=== PATIENT | female | born 1935 | race Hispanic/Latino ===

== ENCOUNTER 2020-10-12 14:00 | Observation (INO) | payer MEDICARE ==
[~2020-10-12] VITALS: Ht 154.9 cm; Wt 71.6 kg
[2020-10-12 14:50] VITALS: BP 100/60
[2020-10-12 15:16] LABS: BASOPHILS % (AUTO) 0.6 % (0.0-5.0); EOSINOPHILS % (AUTO) 2.3 % (0.0-8.0); HEMATOCRIT 23.2 % (36-48); LYMPHOCYTES % (AUTO) 13.9 % (21.0-51.0); MEAN CORPUSCULAR HEMOGLOBIN 29.9 pg (27.0-33.0); MEAN CORPUSCULAR VOLUME 96.3 fL (79-99); MONOCYTES % (AUTO) 7.9 % (3.0-13.0); NEUTROPHILS % (AUTO) 74.8 % (40.0-77.0); PLATELET COUNT (AUTO) 506 K/uL (130-400); RED BLOOD CELL COUNT(AUTO) 2.41 MIL/uL (4.00-5.50); WHITE BLOOD COUNT (AUTO) 6.6 K/uL (4.8-10.8)
[2020-10-12 15:26] LABS: CREATININE 2.6 mg/dL (0.5-1.5); POTASSIUM 4.9 mmol/L (3.5-5.1)
[2020-10-12 15:35] LABS: ALBUMIN 2.7 g/dL (3.5-5.0); BILIRUBIN,TOTAL 0.4 mg/dL (0.2-1.0); TOTAL PROTEIN, SERUM 6.6 g/dL (6.0-8.3)
[2020-10-12] MEDS ORDERED: GLIP10TA19 PO (15:50)
[2020-10-12] MEDS ORDERED: RISP2TAB86 PO (15:50)
[2020-10-12] MEDS ORDERED: APIX2.5T PO (15:50)
[2020-10-12] MEDS ORDERED: CHLO25TA3 PO (15:50)
[2020-10-12] MEDS ORDERED: RISP1TAB98 PO (15:50)
[2020-10-12] MEDS ORDERED: DONE5TAB33 PO (15:50)
[2020-10-12] MEDS ORDERED: AMLO-257 PO (15:50)
[2020-10-12] MEDS ORDERED: QUET25TA36 PO (15:50)
[2020-10-12] MEDS ORDERED: ERGO500093 PO (15:50)
[2020-10-12 16:00] VITALS: BP 109/44
[2020-10-12] MEDS ORDERED: ONDANSETRON 4MG INJ IVP PRN (17:30)
[2020-10-12] MEDS ORDERED: CLONIDINE HCL 0.1 MG TABLET PO PRN (17:30)
[2020-10-12] MEDS ORDERED: ACETAMINOPHEN 325 MG TAB PO PRN (17:30)
[2020-10-12] MEDS ORDERED: LACTULOSE 20 GM/30 ML UDCUP PO PRN (17:30)
[2020-10-12] MEDS ORDERED: ACETAMINOPHEN 650 MG SUPPOSITORY RC PRN (17:30)
[2020-10-12] MEDS: QUETIAPINE FUMARATE 25 MG TAB PO SCH (21:00)
[2020-10-12] MEDS: APIXABAN 2.5 MG TABLET PO SCH (21:00)
[2020-10-12 22:18] LABS: INR 1.05 (0.85-1.15); PROTHROMBIN TIME 11.4 SEC (9.6-11.6)
[2020-10-12 22:19] LABS: PARTIAL THROMBOPLASTIN TIME 42.8 SEC (26.3-35.5)
[2020-10-12] MEDS: FERROUS SULFATE 325 MG TABLET.DR PO SCH (22:25)
[2020-10-12] MEDS ORDERED: PHARMACY COMMUNICATION MISC SCH ×2 (22:30→23:00)
[2020-10-12 22:31] VITALS: BP 133/53
[2020-10-13 00:08] VITALS: BP 127/63
[2020-10-13 03:58] LABS: BASOPHILS % (AUTO) 0.6 % (0.0-5.0); EOSINOPHILS % (AUTO) 4.8 % (0.0-8.0); HEMATOCRIT 23.4 % (36-48); LYMPHOCYTES % (AUTO) 26.9 % (21.0-51.0); MEAN CORPUSCULAR HEMOGLOBIN 30.2 pg (27.0-33.0); MEAN CORPUSCULAR HGB CONC 31.6 g/dL (32.0-36.0); MEAN CORPUSCULAR VOLUME 95.5 fL (79-99); MONOCYTES % (AUTO) 11.4 % (3.0-13.0); NEUTROPHILS % (AUTO) 55.9 % (40.0-77.0); PLATELET COUNT (AUTO) 540 K/uL (130-400); RED BLOOD CELL COUNT(AUTO) 2.45 MIL/uL (4.00-5.50); RED CELL DISTRIBUTION WIDTH 14.1 % (11.0-15.5); WHITE BLOOD COUNT (AUTO) 7.1 K/uL (4.8-10.8)
[2020-10-13 04:00] VITALS: BP 116/66
[2020-10-13 04:01] LABS: RETICULOCYTE % (AUTO) 1.37 % (0.42-2.23)
[2020-10-13 04:32] LABS: ALBUMIN 2.7 g/dL (3.5-5.0); BILIRUBIN,TOTAL 0.3 mg/dL (0.2-1.0); CREATININE 2.5 mg/dL (0.5-1.5); MAGNESIUM 2.2 mg/dL (1.80-2.40); PHOSPHORUS 3.9 mg/dL (2.5-4.9); TOTAL PROTEIN, SERUM 6.5 g/dL (6.0-8.3)
[2020-10-13 04:38] LABS: % IRON SATURATION 21.1 % (22-44)
[2020-10-13] MEDS: LEVOTHYROXINE 100 MCG TABLET PO SCH (05:16)
[2020-10-13 08:00] VITALS: BP 158/58
[2020-10-13] MEDS ORDERED: DONEPEZIL HCL 5 MG TAB PO SCH (09:00)
[2020-10-13] MEDS: RISPERIDONE 1 MG TABLET PO SCH (10:22)
[2020-10-13] MEDS: PANTOPRAZOLE 40 MG/VIAL IVP SCH (10:22)
[2020-10-13] MEDS: FERROUS SULFATE 325 MG TABLET.DR PO SCH ×2 (10:22→21:32)
[2020-10-13] MEDS: APIXABAN 2.5 MG TABLET PO SCH ×2 (10:22→21:31)
[2020-10-13 12:00] VITALS: BP 126/54
[2020-10-13 16:00] VITALS: BP 138/79
[2020-10-13 20:00] VITALS: BP 123/48
[2020-10-13] MEDS ORDERED: RISPERIDONE 1 MG TABLET PO SCH (20:00)
[2020-10-13] MEDS: QUETIAPINE FUMARATE 25 MG TAB PO SCH (21:31)
[2020-10-13] MEDS: DONEPEZIL HCL 5 MG TAB PO SCH (21:33)
[2020-10-14] VITALS: BP 148/54
[2020-10-14 04:10] VITALS: BP 146/53
[2020-10-14 04:51] LABS: HEMATOCRIT 22.9 % (36-48); MEAN CORPUSCULAR HEMOGLOBIN 29.3 pg (27.0-33.0); MEAN CORPUSCULAR VOLUME 94.6 fL (79-99); RED BLOOD CELL COUNT(AUTO) 2.42 MIL/uL (4.00-5.50); RED CELL DISTRIBUTION WIDTH 13.9 % (11.0-15.5); WHITE BLOOD COUNT (AUTO) 6.3 K/uL (4.8-10.8)
[2020-10-14 05:01] LABS: CREATININE 2.1 mg/dL (0.5-1.5); POTASSIUM 4.4 mmol/L (3.5-5.1)
[2020-10-14] MEDS: LEVOTHYROXINE 100 MCG TABLET PO SCH (06:44)
[2020-10-14 07:30] VITALS: BP 132/57
[2020-10-14] MEDS ORDERED: MAGNESIUM CITRATE 296 ML SOLUTION PO SCH (08:30)
[2020-10-14] MEDS ORDERED: COMPOUND IV MISC 1 EACH IVSOLN MISC PRN (08:30)
[2020-10-14] MEDS ORDERED: IRON SUCROSE COMPLEX 100 MG in 0.9%NACL 50ML 50 ML IV SCH (09:00)
[2020-10-14] MEDS: APIXABAN 2.5 MG TABLET PO SCH (09:29)
[2020-10-14] MEDS: DONEPEZIL HCL 5 MG TAB PO SCH (09:29)
[2020-10-14] MEDS: FERROUS SULFATE 325 MG TABLET.DR PO SCH (09:29)
[2020-10-14] MEDS: RISPERIDONE 1 MG TABLET PO SCH (09:30)
[2020-10-14] MEDS: PANTOPRAZOLE 40 MG/VIAL IVP SCH (09:31)
[2020-10-14 11:51] VITALS: BP 147/54
[2020-10-14 16:00] VITALS: BP 145/56
[2020-10-15] MEDS ORDERED: POLYETHYLENE GLYCOL 3350 17 GM POWD.PACK PO SCH (09:00)
== END 2020-10-14 18:45 ==
LOC: EDH 14:00 → EDHIP 17:04 → 3DH 21:01
PROVIDERS: ADMIT Internal Medicine Critical Care Medicine; ATTEND Internal Medicine Critical Care Medicine
DX: I82.442 Acute embolism and thrombosis of left tibial vein (principal); Z20.822 Contact with and (suspected) exposure to COVID-19; F03.90 Unspecified dementia, unspecified severity, without behavioral disturbance, psychotic disturbance, mood disturbance, and anxiety; I12.0 Hypertensive chronic kidney disease with stage 5 chronic kidney disease or end stage renal disease; N17.9 Acute kidney failure, unspecified; N18.6 End stage renal disease; E11.22 Type 2 diabetes mellitus with diabetic chronic kidney disease; I25.10 Atherosclerotic heart disease of native coronary artery without angina pectoris; J45.909 Unspecified asthma, uncomplicated; H91.90 Unspecified hearing loss, unspecified ear; D64.9 Anemia, unspecified; E03.9 Hypothyroidism, unspecified; E61.1 Iron deficiency; E78.00 Pure hypercholesterolemia, unspecified; E78.5 Hyperlipidemia, unspecified; F19.90 Other psychoactive substance use, unspecified, uncomplicated; Z79.01 Long term (current) use of anticoagulants; Z86.73 Personal history of transient ischemic attack (TIA), and cerebral infarction without residual deficits; Z87.891 Personal history of nicotine dependence; Z86.718 Personal history of other venous thrombosis and embolism
CPT/HCPCS: 36415 ×3; 71045; 80048; 80053 ×2; 82270; 82607; 82728; 82948 ×10; 83735; 84100; 84484; 85025 ×2; 85027; 85610; 85730; 86140; 87635; 93005; 93971; 96365; 96375; 96376; 97161; 97530 ×2; 99285; C9113 ×2; G0378 ×49; G8981; G8982; G8983; J1756; 96374